=== PATIENT | male | born 1965 | race Caucasian/White ===

== ENCOUNTER → 2018-12-15 15:16 | Outpatient (CLI) | payer SELFPAY ==
--- NOTE | 2018-12-15 15:32 | XR_ITS ---
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 There is an old fracture of the distal aspect of the proximal phalanx of the 4th toe with medial angulation of the distal fracture fragment. No acute bony findings are evident. 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
--- NOTE | 2018-12-15 15:32 | XR_ITS ---
PROCEDURE: XR FOOT WT BEARING RT 3V CLINICAL INDICATION: wound right great toe Pain and swelling, ulceration great toe COMPARISON: No exams were available for comparison FINDINGS: No fracture or dislocation. No lytic or blastic change. There is normal mineralization. The joint spaces are well-preserved. No significant degenerative/arthritic changes. No erosive changes evident. Other findings:No bony destructive process evident. There are mild osteoarthritic changes at the talonavicular and navicular cuneiform joint. Hammertoe deformity involves 2nd 3rd and 4th toes. Mild osteoarthritic changes of the ankle. Mild pes planus. IMPRESSION: 1. No bony destructive process evident. 2. Pes planus with degenerative changes Dictated by: Cole Herrera MD 12/15/2018 15:52 Electronically signed by Cole Herrera MD in [place] 12/15/2018 15:52
[2018-12-15 15:53] LABS: Basophils # 0.1 K/mm3 (0-0.2); Basophils % 0.8 % (0.1-2.0); Eosinophils # 0.3 K/mm3 (0.0-0.4); Eosinophils % 3.9 % (0.1-12.0); Hematocrit 47.4 % (42.0-52.0); Hemoglobin 15.1 g/dL (14.1-18.0); Lymphocytes # 1.8 K/mm3 (0.7-4.5); Lymphocytes % 24.1 % (10-50); Mean Corpuscular HGB Conc 31.9 g/dL (31.8-35.4); Mean Corpuscular Hemoglobin 28.3 pg (27.0-31.2); Mean Corpuscular Volume 88.6 fl (80-94); Mean Platelet Volume 7.3 fl (7.4-10.4); Monocytes # 0.5 K/mm3 (0.1-1.0); Neutrophils # 4.8 K/mm3 (1.8-7.8); Neutrophils % 64.1 % (37.0-80.0); Platelet Count 372 K/mm3 (142-424); Red Blood Count 5.35 M/mm3 (4.60-6.20); Red Cell Distribution Width 13.7 % (11.5-17.5); White Blood Count 7.5 K/mm3 (4.8-10.8)
[2018-12-15 16:31] LABS: Erythrocyte Sedimentation Rate 4 mm/hr (0-20)
[2018-12-15 17:26] LABS: Alanine Aminotransferase 18 U/L (12-78); Albumin/Globulin Ratio 1.3 (1.1-1.8); Alkaline Phosphatase 95 U/L (46-116); Anion Gap 11.7 mEq/L (5-15); Aspartate Amino Transferase 17 U/L (15-37); Bilirubin,Total 0.3 mg/dL (0.2-1.0); Blood Urea Nitrogen 11 mg/dL (7-18); Calcium 9.5 mg/dL (8.5-10.1); Carbon Dioxide 28 mmol/L (21.0-32.0); Chloride 104 mmol/L (98-107); Creatinine,Serum 1.02 mg/dL (0.70-1.30); Estimated Glomerular Filt Rate 77 ml/min (>60); GFR (African American) 93 ML/MIN (>60); Globulin 3.2 gm/dl (1.3-3.2); Glucose 93 mg/dL (74-106); Potassium 4.7 mmoL/L (3.5-5.1); Sodium 139 mmol/L (136-145); Total Protein,Serum 7.2 gm/dL (6.4-8.2)
== END ==
PROVIDERS: Visit Provider Podiatrist
DX: L03.031 Cellulitis of right toe (principal)
CPT/HCPCS: 36415; 73630; 80053; 85025; 85651; 86140; 87070; 87077; 87186; 87205